=== PATIENT | female | born 2000 | race Caucasian/White ===

== ENCOUNTER → 2020-09-16 16:32 | Outpatient (BNVA) | payer OTHER, SELFPAY | PROVIDERS: Family Provider Nurse Practitioner Family; Visit Provider Emergency Medicine | DX: Z20.822 Contact with and (suspected) exposure to COVID-19 (principal) | CPT/HCPCS: 87635 ==

== ENCOUNTER → 2021-10-04 12:21 | Outpatient (BNVA) | payer MEDICAID, SELFPAY | PROVIDERS: Family Provider Nurse Practitioner Family; Visit Provider Registered Nurse Neonatal Intensive Care | DX: Z20.822 Contact with and (suspected) exposure to COVID-19 (principal); R09.81 Nasal congestion; R50.9 Fever, unspecified; R51.9 Headache, unspecified | CPT/HCPCS: 87635 ==

== ENCOUNTER 2021-10-05 18:02 | Emergency (ER) | payer MEDICAID, SELFPAY ==
[2021-10-05 18:09] VITALS: BP 111/70; PULSE 118; RESP 18; TEMP 37.3; O2SAT 95; BMI 21.4
[2021-10-05] MEDS: ibuprofen 800 mg tablet PO (18:37)
[2021-10-05 19:08] LABS: Influenza A by IFA Negative (Negative); Influenza B by IFA Negative (Negative)
--- NOTE | 2021-10-05 20:16 | ED_ITS ---
HPI - COVID General: Chief Complaint: COVID symptoms Stated Complaint: COVID symptoms Time Seen by Provider: 10/05/21 20:13 History of Present Illness: 21-year-old female comes in today with nausea vomiting diarrhea with fever and chills starting 2 days ago. Patient was evaluated 3 days ago when entering rehab and was negative for Covid. Patient was checked for the flu and Covid yesterday at the urgent care clinic and was reported to have a negative flu test and Covid test was sent out for further evaluation. Patient appears mildly unwell. Patient appears nontoxic. Patient appears in mild to no pain. COVID 19 common symptoms: positive fever(s), nausea, vomiting and diarrhea; negative dyspnea COVID 19 other sytmptoms: negative chest pain COVID Results: SARS-CoV-2 RNA (RT-PCR) Not detected (NOT DETECTED) 09/16/20 16:32 09/16/20 SARS-CoV-2 (PCR) Pending 10/04/21 12:21 10/04/21 Coronavirus Type 229E (PCR) Pending 10/04/21 12:21 10/04/21 Review of Systems Const: Reports: fever(s) Card: Denies: chest pain Resp: Denies: dyspnea GI: Reports: nausea, vomiting and diarrhea Physical Exam Const: COMMON NORMALS: alert HENMT: COMMON NORMALS: atraumatic HEAD & SCALP: atraumatic MOUTH: Normal oral and palatal mucosa present THROAT: posterior oropharynx normal Eye: COMMON NORMALS: Equal, round and reactive pupils present and EOMs intact bilaterally PUPIL: Yes Equal, round and reactive pupils present Neck/C-Spine: COMMON NORMALS: full ROM and no lymphadenopathy Resp: COMMON NORMALS: normal respiratory effort and clear to auscultation bilaterally AUSCULTATION: clear to auscultation bilaterally Cardio: COMMON NORMALS: regular rate and regular rhythm RATE: regular rate RHYTHM: regular rhythm GI: COMMON NORMALS: Soft to palpation and non-tender PALPATION: Yes Soft to palpation : BLADDER/KIDNEY EXAM: Yes CVA tenderness on the right Back/Pelvis: GENERAL BACK: Yes CVA tenderness Extremity: COMMON NORMALS: normal to inspection and no pedal edema Neuro: SENSORIUM/ORIENTATION: Yes alert Psych: COMMON NORMALS: cooperative Skin: COMMON NORMALS: turgor normal GENERAL SKIN EXAM: turgor normal Course Vital Signs: Vital signs: Vital Signs Temperature 99.2 F 10/05/21 18:09 Pulse Rate 87 10/05/21 20:34 Respiratory Rate 18 10/05/21 20:34 Blood Pressure 112/69 10/05/21 20:34 Pulse Oximetry 100 10/05/21 20:34 [facility] - COVID Medical Decision Making 21-year-old female comes in today with complaints of nausea vomiting, fever, body aches for last 2 days. Patient has been evaluated for the flu and for COVID-19 at the urgent care. On evaluation patient's posterior pharynx is clear. Bilateral TMs are clear. Ears are clear. Lungs are clear to auscultation. Abdomen soft with tenderness in suprapubic area. Patient does have some right CVA tenderness on the percussion. Differential diagnosis includes but not limited to urinary tract infection, viral syndrome, COVID-19. Influenza test was negative. Urinalysis showed a large amount of white blood cells but also some contamination. CBC showed a white count of 13.9. CMP was unremarkable. COVID-19 test remained outstanding. With clinical exam I believe the patient probably has a urinary tract infection possibly with some mild pyelonephritis. Patient was given 1 L of IV fluid with improvement in symptoms. We went ahead and gave 1 g of ceftriaxone for antibiotic. Patient will be continued on cephalexin 500 twice a day for the next 7 days. Patient was encouraged to drink plenty of fluids and follow-up with primary care for recheck. Patient reported understanding and agreed to plan. Lab Data : 10/05/21 20:37 10/05/21 20:37 Laboratory Results WBC 13.9 10^3/uL (4.0-10.0) H 10/05/21 20:37 RBC 4.33 10^6/uL (4.1-5.3) 10/05/21 20:37 Hgb 12.5 g/dL (11.5-15.3) 10/05/21 20:37 Hct 38.8 % (37.0-47.0) 10/05/21 20:37 MCV 89.6 fl (81-99) 10/05/21 20:37 MCH 28.9 pg (28.0-34.0) 10/05/21 20: MCHC 32.2 g/dL (30.0-36.0) 10/05/21 20:37 RDW 13.2 % (12.1-15.1) 10/05/21 20:37 Plt Count 187 10^3/cmm (130-400) 10/05/21 20: MPV 11.1 fL (7.4-10.4) H 10/05/21 20:37 Neut % (Auto) 84.2 % 10/05/21 20: Lymph % (Auto) 5.7 % 10/05/21 20: [place] % (Auto) 8.1 % 10/05/21 20:37 Eos % (Auto) 1.1 % 10/05/21 20: Baso % (Auto) 0.3 % 10/05/21 20: Neut # (Auto) 11.71 10^3/uL (1.8-7.7) H 10/05/21 20: Lymph # (Auto) 0.8 10^3/uL (0.8-4.8) 10/05/21 20: [place] # (Auto) 1.1 10^3/uL (0.2-0.9) H 10/05/21 20:37 Eos # (Auto) 0.2 10^3/uL (0.0-0.8) 10/05/21 20: Baso # (Auto) 0.0 10^3/uL (0.0-0.1) 10/05/21 20: Nucleated RBC % (auto) 0 % 10/05/21 20: Nucleated RBCs # 0.0 /100WBC 10/05/21 20: Sodium 135 mmol/L (136-145) L 10/05/21 20: Potassium 3.9 mmol/L (3.5-5.1) 10/05/21 20:37 Chloride 99 mmol/L (98-107) 10/05/21 20: Carbon Dioxide 21 mmol/L (22-29) L 10/05/21 20: Anion Gap 18.9 (5-19) 10/05/21 20:37 BUN 16 mg/dL (6-20) 10/05/21 20:37 Creatinine 0.8 mg/dL (0.5-0.9) 10/05/21 20: GFR Calculation 90.5 mL/min (90-130) 10/05/21 20:37 Glucose 115 mg/dL (65-115) 10/05/21 20:37 Calculated Osmolality 282 mOsm/kg (285-295) L 10/05/21 20:37 Calcium 9.4 mg/dL (8.5-10.5) 10/05/21 20:37 Total Bilirubin 0.5 mg/dL (0.15-1.2) 10/05/21 20:37 AST 16 U/L (0-32) 10/05/21 20:37 ALT 17 U/L (0-33) 10/05/21 20:37 Alkaline Phosphatase 92 IU/L (35-105) 10/05/21 20:37 Total Protein 8.0 g/dL (6.6-8.7) 10/05/21 20: Albumin 3.8 g/dL (3.5-5.2) 10/05/21 20: Globulin 4.2 g/dL (1.3-4.6) 10/05/21 20:37 Urine Color Yellow (Yellow) 10/05/21 21:20 Urine Appearance Clear (CLEAR) 10/05/21 21:20 Urine pH 5 (5-7) 10/05/21 21:20 Ur Specific [place] 1.010 (1.005-1.030) 10/05/21 21:20 Urine Protein Neg (Negative) 10/05/21 21:20 Urine Glucose (UA) Norm (Normal) 10/05/21 21:20 Urine Ketones Negative (Negative) 10/05/21 21:20 Urine Blood 2+ (Negative) H 10/05/21 21:20 Urine Nitrate Negative (Negative) 10/05/21 21:20 Urine Bilirubin Neg (Negative) 10/05/21 21:20 Urine Urobilinogen Norm mg/dL (Negative) 10/05/21 21:20 Ur Leukocyte Esterase 2+ (Negative) H 10/05/21 21:20 Urine RBC 0-4 /hpf (0-2) H 10/05/21 21:20 Urine WBC 25-40 /hpf (0-5) H 10/05/21 21:20 Ur Squamous Epith Cells 5-10 /hpf (0-5) H 10/05/21 21:20 Amorphous Sediment Not Reportable 10/05/21 21:20 Urine Bacteria 1+ /hpf (NONE) H 10/05/21 21:20 Influenza Type A Ag Negative (Negative) 10/05/21 18:38 Influenza Type B Ag Negative (Negative) 10/05/21 18:38 SARS-CoV-2 RNA (RT-PCR) Not detected (NOT DETECTED) 09/16/20 16:32 09/16/20 SARS-CoV-2 (PCR) Pending 10/04/21 12:21 10/04/21 Coronavirus Type 229E (PCR) Pending 10/04/21 12:21 10/04/21 Discharge Plan Discharge Patient Disposition: Home Clinical Impression: UTI (urinary tract infection) Qualifiers: Urinary tract infection type: acute cystitis Hematuria presence: without hematuria Qualified Code(s): N30.00 - Acute cystitis without hematuria Condition: Stable Prescriptions: New cephalexin 500 mg capsule 500 mg PO Q12H 7 Days Qty: 14 0RF Discharge Orders: Discharge ED (Routine); Ordered 10/05/21 Ordered By: Braulio Cole Discharge Diet: Usual diet Discharge Activity: Increase activity as tolerated Patient Instructions: Urinary Tract Infection in Women (ED) Activity Restrictions/Additional Instructions: Home and rest. Drink plenty of fluids. Take antibiotic 500 mg of cephalexin twice daily for the next 7 days. Follow-up with primary care in 1 week for re check. Return to ER for new concerns. Coding Level of Care Code ED Dump Grader for Molly Fwd Exam Comprehensive
[2021-10-05] MEDS: ondansetron 2 mg/ML SDV 2 mL 4 MG IVP (20:31)
[2021-10-05] MEDS: sodium chloride 0.9% 1,000 ML 999 ML IV (20:31)
[2021-10-05 20:33] VITALS: O2SAT 100
[2021-10-05 20:34] VITALS: BP 112/69; PULSE 87; RESP 18; O2SAT 100
[2021-10-05 20:48] LABS: Basophils % 0.3 %; Eosinophils # 0.2 10^3/uL (0.0-0.8); Eosinophils % 1.1 %; Hematocrit 38.8 % (37.0-47.0); Hemoglobin 12.5 g/dL (11.5-15.3); Lymphocytes # 0.8 10^3/uL (0.8-4.8); Lymphocytes % 5.7 %; Mean Corpuscular HGB Conc 32.2 g/dL (30.0-36.0); Mean Corpuscular Hemoglobin 28.9 pg (28.0-34.0); Mean Corpuscular Volume 89.6 fl (81-99); Mean Platelet Volume 11.1 fL (7.4-10.4); Monocytes # 1.1 10^3/uL (0.2-0.9); Monocytes % 8.1 %; Neutrophils # 11.71 10^3/uL (1.8-7.7); Neutrophils % 84.2 %; Nucleated Red Blood Cells % 0 %; Platelet Count 187 10^3/cmm (130-400); Red Blood Count 4.33 10^6/uL (4.1-5.3); Red Cell Distribution Width 13.2 % (12.1-15.1); White Blood Count 13.9 10^3/uL (4.0-10.0)
[2021-10-05 21:10] LABS: Alanine Aminotransferase 17 U/L (0-33); Albumin Level 3.8 g/dL (3.5-5.2); Alkaline Phosphatase 92 IU/L (35-105); Anion Gap 18.9 (5-19); Aspartate Amino Transferase 16 U/L (0-32); Blood Urea Nitrogen 16 mg/dL (6-20); Calcium 9.4 mg/dL (8.5-10.5); Carbon Dioxide 21 mmol/L (22-29); Chloride 99 mmol/L (98-107); Globulin 4.2 g/dL (1.3-4.6); Glomerular Filtration Rate 90.5 mL/min (90-130); Glucose 115 mg/dL (65-115); Osmolality Calculated 282 mOsm/kg (285-295); Potassium 3.9 mmol/L (3.5-5.1); Sodium 135 mmol/L (136-145); Total Bilirubin 0.5 mg/dL (0.15-1.2)
[2021-10-05 21:48] LABS: Add Urine Microscopic? YES; Bilirubin Urine Neg (Negative); Blood Urine 2+ (Negative); Glucose Urine UA Norm (Normal); Ketones Urine Negative (Negative); Leukocyte Esterase Urine 2+ (Negative); Nitrate Urine Negative (Negative); Protein Urine Neg (Negative); Urine Appearance Clear (CLEAR); Urine Color Yellow (Yellow); Urobilinogen Urine Norm (Negative); pH Urine 5 (5-7)
[2021-10-05 21:49] LABS: Add Urine Culture? Yes; Bacteria Urine 1+ /hpf; RBC Urine 0-4 /hpf (0-2); WBC Urine 25-40 /hpf (0-5)
[2021-10-05] MEDS: cefTRIAXone 1,000 MG in sodium chloride 0.9% (plus) 50 ML 100 MG IV (22:23)
[2021-10-05 22:45] VITALS: BP 122/73; PULSE 85; RESP 18; O2SAT 100
== END 2021-10-05 22:46 | disposition home or self-care (01) ==
PROVIDERS: Emergency Medicine; Emergency Provider Nurse Practitioner Family
DX: N30.00 Acute cystitis without hematuria (principal)
CPT/HCPCS: 80053; 81001; 85025; 87077; 87086; 87186; 87804; 96365; 96375; 99284; J0696; J2405; J7030

== ENCOUNTER → 2021-10-14 14:25 | Outpatient (BNVA) | payer MEDICAID, SELFPAY | PROVIDERS: Visit Provider Internal Medicine | DX: B19.20 Unspecified viral hepatitis C without hepatic coma (principal); R76.8 Other specified abnormal immunological findings in serum | CPT/HCPCS: 82105; 86705; 86706; 87340; 87522; 87902 ==

== ENCOUNTER → 2021-11-22 13:08 | Outpatient (BNVA) | payer MEDICAID, SELFPAY | PROVIDERS: PCP Family Medicine; Visit Provider Family Medicine | DX: Z01.419 Encounter for gynecological examination (general) (routine) without abnormal findings (principal) | CPT/HCPCS: 88175 ==

== ENCOUNTER → 2022-01-25 15:03 | Outpatient (BNVA) | payer MEDICAID, SELFPAY | PROVIDERS: PCP Family Medicine; Visit Provider Registered Nurse Neonatal Intensive Care | DX: R39.9 Unspecified symptoms and signs involving the genitourinary system (principal); Z20.2 Contact with and (suspected) exposure to infections with a predominantly sexual mode of transmission; N39.0 Urinary tract infection, site not specified | CPT/HCPCS: 81000; 87661 ==

== ENCOUNTER 2022-03-03 14:00 | Outpatient (CLI) | payer MEDICAID, SELFPAY ==
--- NOTE | 2022-03-03 14:15 | US_ITS ---
WS: [id number] Right upper quadrant ultrasound, 03/03/2022 Clinical Data: HEP C Comparison: None. Findings: The gallbladder shows no sludge or stone. The wall measures 0.3 cm with no pericholecystic fluid. The common bile duct is 0.4 cm and there are no intrahepatic ductal abnormalities. Liver shows no cysts, masses or dilated intrahepatic ducts. The portal vein shows normal flow. The pancreas is not obscured by overlying bowel gas and no cyst, pseudocyst, or evidence of pancreati tis is noted. Right kidney measures 9.3 cm and no cyst, masses or hydronephrosis can be seen. The aorta and inferior vena cava show no vascular abnormalities. US/US liver [id number] Impression: Negative right upper quadrant ultrasound and liver.
== END 2022-03-03 14:01 | disposition home or self-care (01) ==
LOC: RAD 14:03
PROVIDERS: PCP Family Medicine; Visit Provider Internal Medicine
DX: B19.20 Unspecified viral hepatitis C without hepatic coma (principal)
CPT/HCPCS: 76705

== ENCOUNTER 2023-09-06 15:06 | Outpatient (CLI) | payer MEDICAID, SELFPAY ==
[2023-09-06 15:06] VITALS: BMI 34.5
[2023-09-06 15:18] VITALS: BP 135/87; PULSE 114
[2023-09-06 15:39] VITALS: BP 113/72; PULSE 102
[2023-09-06 15:54] VITALS: BP 126/70; PULSE 103
[2023-09-06 16:04] LABS: Nitrazine Paper, PH Negative
[2023-09-06 16:07] VITALS: BP 126/70; PULSE 103
== END 2023-09-06 16:07 | disposition home or self-care (01) ==
LOC: OPOB 15:09 → OBGYN 15:09
PROVIDERS: PCP Family Medicine; Visit Provider Family Medicine
DX: O26.899 Other specified pregnancy related conditions, unspecified trimester (principal); Z3A.00 Weeks of gestation of pregnancy not specified; N89.8 Other specified noninflammatory disorders of vagina
CPT/HCPCS: 59025; 83986; 99211

== ENCOUNTER 2023-09-11 12:25 | Inpatient (IN) | payer MEDICAID, SELFPAY ==
[2023-09-11] VITALS (22 sets, daily range): BP systolic 108–142; BP diastolic 57–109; PULSE 85–110; RESP 16–18; BMI 34.5
[2023-09-11 13:13] LABS: Basophils % 0.4 %; Eosinophils # 0.1 10^3/uL (0.0-0.8); Eosinophils % 0.6 %; Hematocrit 33.9 % (36-47); Lymphocytes # 1.4 10^3/uL (0.8-4.8); Lymphocytes % 18.3 %; Mean Corpuscular HGB Conc 31.9 g/dL (30-55); Mean Corpuscular Hemoglobin 27.2 pg (27-33); Mean Corpuscular Volume 85.4 fl (85-98); Mean Platelet Volume 11.8 fL (7.4-10.4); Monocytes # 0.6 10^3/uL (0.2-0.9); Monocytes % 7.1 %; Neutrophils # 5.55 10^3/uL (1.8-7.7); Neutrophils % 71.9 %; Nucleated Red Blood Cells % 0 %; Platelet Count 182 10^3/cmm (157-399); Red Blood Count 3.97 10^6/uL (3.85-5.65); Red Cell Distribution Width 14.6 % (12.1-15.1); White Blood Count 7.72 10^3/uL (3.29-11.43)
[2023-09-11] MEDS: oxytocin 30 UNIT/500 ML BAG IV (13:15)
[2023-09-11] MEDS: dextrose 5%-lactated ringers 1,000 ML 125 ML IV ×2 (13:15→20:57)
[2023-09-11] MEDS: calcium carbonate 500 mg Chew Tablet 1000 MG PO (20:06)
[2023-09-11] MEDS: miSOPROStol 100 mcg tablet 25 MCG VAGINAL (23:10)
[2023-09-12] VITALS (84 sets, daily range): BP systolic 102–157; BP diastolic 53–93; PULSE 66–122; RESP 15–18; TEMP 35.7–36.3; O2SAT 74–100
[2023-09-12] MEDS: calcium carbonate 500 mg Chew Tablet 1000 MG PO ×2 (03:15→10:48)
[2023-09-12] MEDS: miSOPROStol 100 mcg tablet 25 MCG VAGINAL (04:01)
--- NOTE | 2023-09-12 12:15 | PM.OPHPUD ---
Labor & Delivery H&P Update Date of Procedure: September 11, 2023 Date H&P Performed: 09/07/23 Admission Diagnosis: IUP at 39 weeks 4d Primary indication for procedure: Elective induction Planned procedure: Induction of labor and delivery
--- NOTE | 2023-09-12 12:19 | PM.OBGYPN ---
COMPUTER SYSTEMS ADMINISTRATOR Subjective Subjective: Interval history: The patient is here for an elective induction. She is 39 weeks 5 days gestation today. Her induction process was started yesterday afternoon she was put on high-dose Pitocin by 9:00 that evening she had not had any cervical change so she was allowed to eat shower walk and was then started on Cytotec. She received 2 doses of Cytotec and this morning she was started again on Pitocin. Her cervical exam was 360 and -1 station with the head well applied so I went ahead and ruptured membranes. There was a moderate amount of clear fluid.. The patient has been samy irregularly every 1 to 5 minutes and heart tones have been reassuring running in the 140s with moderate variability. Labor: Station: -3 Amniotic Membrane Status: Ruptured Monitor Mode: Palpation Contraction Pattern: Irregular Status: Category I Vitals/I&O/Wt Last Vital Signs Temp 97.2 F L 09/12/23 08:41 Pulse 77 09/12/23 12:13 Resp 17 09/11/23 21:19 BP 130/77 09/12/23 12:13 O2 Del Method Room Air 09/11/23 21:19 09/11/23 09/12/23 09/12/23 22:59 06:59 14:59 Intake Total 1100.084 / 1109.084 34.0 / 34.0 Balance 1100.084 / 1109.084 34.0 / 34.0 Weight last 48 hrs Weight 106.141 kg Physical Exam Narrative: Resting in bed, alert and oriented, no abdominal tenderness, vaginal exam 3, 60, -2 station Data 09/11/23 12:35 Attestations Medical Necessity Statement*: Induction of labor and delivery Coding Level of Care Code Acute Code for Chg Fwd
[2023-09-12] MEDS: lactated ringers 1,000 ML 999 ML IV ×2 (12:39→13:49)
--- NOTE | 2023-09-12 14:01 | P.ANESASSM_ITS ---
Pre-Anesthetic Assessment Height/Weight: Height 1.75 m Weight 106.141 kg Temp Pulse Resp BP Pulse Ox O2 Del Method 97.3 F L 88 17 129/81 74 L Room Air 09/12/23 12:32 09/12/23 13:58 09/11/23 21:19 09/12/23 13:56 09/12/23 13:58 09/11/23 21:19 Preop Diagnosis: Labor pain CHOCO Was Beta Jose taken within 24 hours: N/A Was Clonidine taken within 24 hours: N/A Social No alcohol and No tobacco Vaps Exam alert, oriented x 3, clear to auscultation bilaterally and regular rate & rhythm Airway Submandibular: within normal limits Cervical ROM: within normal limits Mallampati: Class II Dentition: full History/ROS No significant history except as noted and No significant complaints Pulmonary None reported CV/HEM None reported None reported Hepatic None reported GI Gastroesophageal Reflux Disease Metabolic None reported Musc/skel None reported Neuropsych None reported Anesthetic Plan ASA status: 2 Anesthesia: Regional (specify below) Other: Epidural Risk of > 500 ml blood loss (7ml/kg in children): No Medications/Allergies Home Medications Medication Instructions Recorded Confirmed Last Taken Type No Known Home Medications 09/11/23 09/11/23 Unknown History Allergies Allergy/AdvReac Type Severity Reaction Status Date / Time aloe vera Allergy hives Verified 09/11/23 13:54 Current Medications Generic Name Dose Route Start Last Admin Trade Name Freq PRN Reason Stop Dose Admin Calcium Carbonate 1,000 mg 09/11/23 12:55 09/12/23 10:48 Calcium Carbonate 500 Mg Chew Tablet PO 1,000 mg Q4H PRN Administration Heartburn/Indigestion (Use 1st) Dextrose/Lactated Ringer's 1,000 mls @ 125 mls/hr 09/11/23 13:00 09/12/23 12:39 Dextrose 5%-Lactated Ringers IV Infused .Q8H KRISHAN Infusion Oxytocin 30 unit in 500 mls @ 1 mls/hr 09/11/23 13:15 09/12/23 12:00 Pitocin IV 20 milliunit/min .Q24H KRISHAN 20 mls/hr Titration Protocol 1 MILLIUNIT/MIN Lactated Ringer's 1,000 mls @ 999 mls/hr 09/12/23 12:33 09/12/23 13:49 Lactated Ringers IV 999 mls/hr .Q1H1M PRN Administration See label comments PFSH Anesthesia Medical History Anxiety Depression Trichomonal vaginitis Family History Family/Other Breast cancer paternal aunt, breast cancer Grandmother Breast cancer paternal grandmother, breast cancer Female Reproductive History : 1 Data Anesthesia 09/11/23 12:35 Short CBC 09/11/23 Range/Units 12:35 WBC 7.72 (3.29-11.43) 10^3/uL Hgb 10.80 L (11.27-16.99) g/dL Hct 33.9 L (36-47) % MCV 85.4 (85-98) fl Plt Count 182 (157-399) 10^3/cmm Neut % (Auto) 71.9 % Neut # (Auto) 5.55 (1.8-7.7) 10^3/uL Blood Bank 09/11/23 12:35 Blood Type O Positive Rho(D) Type Rh positive Antibody Screen Negative Cardiac Studies: 2 No Data to Display
--- NOTE | 2023-09-12 14:04 | ANES.PROC ---
Anesthesia Procedures Procedure/Date: 09/12/23 Epidural: Time Out Performed: Yes Consents Signed: Procedure Consent Consent: requested by attending/covering physician, from patient, risks and benefits reviewed and patient agrees to proceed Lumbar Level: L3-L4 Epidural position: sitting Epidural procedure: sterile prep of area, 1% lidocaine to numb the area, 18 g needle, negative for paresthesia passed, neg for paresthesia, test dose given, 1.5% xylocaine 1:200k epi, 0.2% Ropivacaine bolus ml (5cc and Fentanyl 100 mcg), placed PCEA, no systemic response, sterile dressing applied and 0.2% Ropiavacaine @ mls/hr (12cc/hour) Additional Comments: Pt tolerated well
[2023-09-12] MEDS: ROPivacaine syringe 100 MG/50 ML SYRINGE 13 MG EPIDURAL ×3 (14:09→20:45)
[2023-09-12] MEDS: dextrose 5%-lactated ringers 1,000 ML 125 ML IV (14:47)
[2023-09-12] MEDS: alum-mag-hydroxide-sime 30 mL UDC PO (18:48)
[2023-09-12] MEDS: oxytocin 30 UNIT/500 ML BAG 10 UNIT IV (22:03)
[2023-09-12] MEDS: lidocaine 2% INJ 20 mL INJECTION (23:42)
[2023-09-13] VITALS (13 sets, daily range): BP systolic 109–141; BP diastolic 60–89; PULSE 90–106; RESP 16–17; TEMP 36.8; O2SAT 97
--- NOTE | 2023-09-13 00:30 | PM.DELIVERY ---
Delivery Note: Date of delivery: September 13, 2023 Estimated blood loss (mL): 250 Pre-Delivery Course: The patient had routine care at [facility]. She was blood type O+, antibody negative, hepatitis B nonreactive, hepatitis C nonreactive, HIV nonreactive, rubella nonimmune, GC chlamydia negative, positive for trichomonas treated with test of cure negative, Q low risk, she passed her glucose tolerance test, she was GBS negative. There were no complications during the . Delivery: This is a 23-year-old G1, P0 at 39 weeks 5 days gestation who requested an elective induction. She was first started on Pitocin but after 9 hours had not made any cervical change so she was allowed to eat walk and shower. She was then given 2 doses of Cytotec. Afterwards she had still not made much cervical change but she was restarted on Pitocin. She underwent artificial rupture of membranes. She received an epidural for pain management. She had a normal spontaneous vaginal delivery of a viable male weight 9 pounds 0 ounces, 4090 gm over an intact perineum. The was suctioned at delivery but was born stunned so he was taken directly to the warmer for stimulation. The placenta was delivered grossly intact and normal to inspection. There was a second-degree perineal laceration that was sutured using 3-0 chromic. Mother was doing well after delivery. The was taken to the nursery for CPAP due to respiratory distress, likely TTN. History History History 1 Term 0 0 Miscarriages/Ectopic 0 Living Children 0 Coding Level of Care Code Acute Code for Chg Fwd
--- NOTE | 2023-09-13 06:59 | ANE.PACU2 ---
Inpatient post-anesthesia follow up: Airway intact: Yes Vital signs: Temperature 97.0 F Pulse Rate 100 Respiratory Rate 17 Blood Pressure 126/68 Pulse Oximetry 98 Oxygen Delivery Me thod Room Air Oxygen Flow Rate Fraction of Inspir ed Oxygen Hydration adequate: Yes Nausea and vomiting: No Pain level: 2 Mental status: Baseline Epidural Start/End: Epidural Start Date: 09/12/23 Epidural Start Time: 13:43 Epidural End Date: 09/13/23 Epidural End Time: 00:50
[2023-09-13] MEDS: docusate sodium 100 mg Capsule PO (08:55)
[2023-09-13] MEDS: prenatal vitamin Capsule 1 CAP PO (08:55)
[2023-09-13] MEDS: ibuprofen 800 mg tablet PO ×3 (08:55→21:37)
[2023-09-13 12:45] LABS: Hematocrit 30.5 % (36-47); Mean Corpuscular HGB Conc 31.8 g/dL (30-55); Mean Corpuscular Hemoglobin 27.7 pg (27-33); Mean Corpuscular Volume 87.1 fl (85-98); Mean Platelet Volume 11.9 fL (7.4-10.4); Platelet Count 146 10^3/cmm (157-399); White Blood Count 10.54 10^3/uL (3.29-11.43)
--- NOTE | 2023-09-13 16:43 | P.PN_ITS ---
Subjective 2 Subjective: She was too exhausted to breast-feed this morning so she offered him formula. Her bleeding is likely heavy. With gushes at times. Vitals/I&O/Wt Last Vital Signs Temp 97.0 F L 09/12/23 18:49 Pulse 106 H 09/13/23 16:23 Resp 17 09/13/23 02:09 BP 138/83 09/13/23 16:23 Pulse Ox 98 09/12/23 21:58 O2 Del Method Room Air 09/13/23 02:09 09/13/23 09/13/23 09/13/23 06:59 14:59 22:59 Intake Total 500 / 2230.75 Output Total 700 / 1350 Balance -200 / 880.75 Physical Exam 2 Narrative: Alert and oriented, sitting up in bed changing the infant, heart regular rate and rhythm, lungs clear to auscultation bilaterally, abdomen is soft and nontender, fundus is firm, extremities have edema but no calf tenderness Urinary Catheter Management: Velasco Latex: Cath Placed During This Visit: yes, but has since been removed by the nurse Reason for Continuing Indwelling Catheter: Decision to DC Catheter Urinary Catheter Date of Insertion: 09/12/23 Urinary Catheter Time of Insertion: 14:35 Date Urinary Catheter Removed: 09/12/23 Time Urinary Catheter Discontinued: 22:45 Data 09/13/23 12:34 A&P Assessment and plan (1) Normal spontaneous vaginal delivery: Routine care Attestations 2 Medical Necessity Statement*: Routine care Coding Level of Care Code Acute Code for Chg Fwd Diagnoses Normal spontaneous vaginal delivery O80
[2023-09-14 03:37] VITALS: BP 109/68; PULSE 83; RESP 16; TEMP 36.6; TEMP 36.7; O2SAT 98
[2023-09-14] MEDS: prenatal vitamin Capsule 1 CAP PO (11:07)
[2023-09-14] MEDS: ibuprofen 800 mg tablet PO ×2 (11:07→16:09)
[2023-09-14] MEDS: docusate sodium 100 mg Capsule PO (11:07)
[2023-09-14 11:14] VITALS: BP 109/69; PULSE 94; RESP 16; TEMP 36.6; O2SAT 99
--- NOTE | 2023-09-14 17:07 | P.DS_ITS ---
Discharge Providers Date of Admission: 09/11/23 12:25 Date of Discharge: September 14, 2023 Attending Provider at Admission: Maura Wayne MD Attending Provider at Discharge: Maura Wayne MD Primary Care Provider: Gabriel Cross DO Diagnoses at Discharge Discharge Diagnosis (1) Normal spontaneous vaginal delivery: Status: Acute Reason for Visit Reason for Visit: induction Hospital Course Hospital Course This is a 23-year-old G1 now P1 who was admitted for elective induction at 39 weeks 4 days gestation. She had a normal spontaneous vaginal delivery of a viable male . The initially had respiratory distress with transient tachypnea of the . He required CPAP for the first 3 hours of life. mother did well. She was ambulating, tolerating a regular diet, had decreased vaginal bleeding and was comfortable with discharge home. Physical Exam Narrative: Laying in bed with infant, heart regular rate and rhythm, lungs clear to auscultation bilaterally, abdomen soft and nontender, fundus firm, extremities have no calf tenderness. Urinary Catheter Management: Velasco Latex: Cath Placed During This Visit: yes, but has since been removed by the nurse Reason for Continuing Indwelling Catheter: Decision to DC Catheter Urinary Catheter Date of Insertion: 09/12/23 Urinary Catheter Time of Insertion: 14:35 Date Urinary Catheter Removed: 09/12/23 Time Urinary Catheter Discontinued: 22:45 Discharge Data Studies Completed and Pending Laboratory Results WBC 10.54 10^3/uL (3.29-11.43) 09/13/23 12:34 RBC 3.50 10^6/uL (3.85-5.65) L 09/13/23 12:34 Hgb 9.70 g/dL (11.27-16.99) L 09/13/23 12:34 Hct 30.5 % (36-47) L 09/13/23 12:34 MCV 87.1 fl (85-98) 09/13/23 12:34 MCH 27.7 pg (27-33) 09/13/23 12:34 MCHC 31.8 g/dL (30-55) 09/13/23 12:34 RDW 15.0 % (12.1-15.1) 09/13/23 12:34 Plt Count 146 10^3/cmm (157-399) L 09/13/23 12:34 MPV 11.9 fL (7.4-10.4) H 09/13/23 12:34 Neut % (Auto) 71.9 % 09/11/23 12:35 Lymph % (Auto) 18.3 % 09/11/23 12:35 [place] % (Auto) 7.1 % 09/11/23 12:35 Eos % (Auto) 0.6 % 09/11/23 12:35 Baso % (Auto) 0.4 % 09/11/23 12:35 Neut # (Auto) 5.55 10^3/uL (1.8-7.7) 09/11/23 12:35 Lymph # (Auto) 1.4 10^3/uL (0.8-4.8) 09/11/23 12:35 [place] # (Auto) 0.6 10^3/uL (0.2-0.9) 09/11/23 12:35 Eos # (Auto) 0.1 10^3/uL (0.0-0.8) 09/11/23 12:35 Baso # (Auto) 0.0 10^3/uL (0.0-0.1) 09/11/23 12:35 Nucleated RBC % (auto) 0 % 09/11/23 12:35 Nucleated RBCs # 0.0 /100WBC 09/11/23 12:35 Blood Type O Positive 09/11/23 12:35 Rho(D) Type Rh positive 09/11/23 12:35 Antibody Screen Negative 09/11/23 12:35 Vitals Last Vital Signs Temp 97.9 F 09/14/23 11:14 Pulse 94 09/14/23 11:14 Resp 16 09/14/23 11:14 BP 109/69 09/14/23 11:14 Pulse Ox 99 09/14/23 11:14 O2 Del Method Room Air 09/14/23 11:14 Discharge Plan Discharge Patient Disposition: Home Condition: Stable Prescriptions: No Action No Known Home Medications Discharge Orders: Discharge Order (Routine); Ordered 09/14/23 Ordered By: Maura Wayne Referrals: Maura Wayne MD [Physician] - 10/12/23 10:30 am Discharge Diet: Usual diet Discharge Activity: Limit activity as instructed Patient Instructions: Opioid Safety Activity Restrictions/Additional Instructions: Nothing per vagina for 6 weeks Discharge Attestations Time Spent in Discharge Care*: less than 30 min Quality Metrics Clinical Quality Measures [ No reported AMI, CVA or VTE this stay] Coding Level of Care Code Acute Code for Chg Fwd Diagnoses Normal spontaneous vaginal delivery O80
[2023-09-14 19:23] VITALS: BP 127/82; PULSE 90; RESP 16; TEMP 36.6
[2023-09-14] MEDS: measles,mumps,rubella pf Vial (w/diluent) 0.5 ML SUBCUT (19:28)
== END 2023-09-14 19:40 | disposition home or self-care (01) | DRG 807 ==
LOC: OPOB 12:27 → OBGYN 12:27
PROVIDERS: Admitting Provider Family Medicine; PCP Family Medicine; Visit Provider Family Medicine
DX: O80 Encounter for full-term uncomplicated delivery (principal); Z37.0 Single live birth; Z3A.39 39 weeks gestation of pregnancy
CPT/HCPCS: 36415; 51702; 59025; 59409; 85025; 85027; 86850; 86900; 90707; 96372; 96374; 99211; J2590; J2795; J3010; J7120; J7121

== ENCOUNTER 2024-12-13 21:11 | Outpatient (CLI) | payer MEDICAID, SELFPAY ==
[2024-12-13 21:24] VITALS: BP 155/84; PULSE 116
[2024-12-13 21:28] VITALS: BMI 32.8
--- NOTE | 2024-12-13 21:56 | PC.NURSE ---
Addendum entered by Vijaya Morrison RICHARD 12/13/24 22:15: 12/13/240: Patient and heard yelling in patient room at each other by Maisha Gutierrez RN. Patient heard stating, Just leave and then I will kill myself. Patient asked to step out to waiting room at this time by Maisha Gutierrez RN so that patient could be calmed down without in the room. Patient then began to scream as left room and unit. A senior application security consultant in [place] in front of traige room speaking with patient in effort to calm patient down as well at Maisha Gutierrez RN. A second senior application security consultant walked patient out at this time and of patient walked out of hospital into parking lot. Patient then stated, If he is going to leave I am going to kill myself. I am going to go home and kill myself if he leaves me. Patient then walked into villa and demanded that she be let out of doors so she could leave to find her . This RN, two security guards, Rosie PETERSONcemetery workers supervisor, Jozef Vargas RN, and Maisha Gutierrez RN standing in hallway making effort to calm patient down and explaining that patient cannot leave if she is having active suicidal ideation/thoughts. Patient states, I know that if I stay you will 96 hour hold me. I need to leave, this is against the law. Jozef Higgins RN and Rosie RN speaking with patient to explain that Dr. Medina is being called by this RN to let him know what is happening. This RN informed Jozef Vargas RN adn Rosie PETERSON that Dr. Medina would like patient to be seen in Emergency Room for further care for mental health evaluations. Information relayed to patient adn patient refused to go to ER. This RN then called Dr. Medina again to inform him that patient refusing to go to ER. Dr. Medina informed this RN that patient not cleared to leave AMA at this time and he would come in to evaluate patient. Dr. Medina on his way at this time. Jozef Higgins RN, Rosie RN, and this RN asked patient to come into patient room and explained that Dr. Medina would be in to see patient and evaluate her. Patient upset and crying but understanding of parameters set. Original Note: 12/13/242129: Patient asked to step out to waiting room at this time by Maisha Gutierrez RN so that patient could be calmed down without in the room. Patient then began to scream as left room and unit. A senior application security consultant in [place] in front of traige room speaking with patient in effort to callm patient down as well at Maisha Gutierrez RN. A second senior application security consultant walked patient out at this time and of patient walked out of hospital into parking lot. Patient then stated, If he is going to leave I am going to kill myself. I am going to go home and kill myself if he leaves me. Patient then walked into villa and demanded that she be let out of doors so she could leave to find her . This RN, two security guards, Rosie PETERSONcemetery workers supervisor, Jozef Vargas RN, and Maisha Gutierrez RN standing in hallway making effort to calm patient down and explaining that patient cannot leave if she is having active sucidal ideation/thoughts. Patient states, I know that if I stay you will 96 hour hold me. I need to leave, this is against the law. Jozef Higgins RN and Rosie RN speaking with patient to explain that Dr. Medina is being called by this RN to let him know what is happening. This RN informed Jozef Vargas RN adn Rosie RN that Dr. Medina would like patient to be seen in Emergency Room for further care for mental helath evaluations. Information relayed to patient adn patient refused to go to ER. This RN then called Dr. Medina again to inform him that patient refusing to go to ER. Dr. Medina informed this RN that patient not cleared to leave AMA at this time and he would come in to evaluate patient. Dr. Medina on his way at this time. Jozef Higgins RN, Rosie RN, and this RN asked patient to come into patient room and explained that Dr. Medina would be in to see patient and evaluate her. Patient upset and crying but understanding of parameters set.
--- NOTE | 2024-12-13 22:32 | PM.OBTRLD ---
OB L&D Triage Visit Information: Date of evaluation: 12/13/24 Comments/Additional reason(s) for visit: The patient arrived to the hospital because she had some spotting and some cramping earlier in the day. She noted some pink discharge on her tissue paper. Since has been has it been no spotting. There is been no contractions. She has felt fine in that regard. She has been fighting with her for the last couple of days. Apparently he cheated on her last night and she was wanting to make him more interested in her. As result, weather fighting, she said she would go home and kill herself. After she said that, the nurses contacted me to make me aware of the situation. She also to the nurses that she did not really mean that and that she would just try to get her 's attention. I came and spoke with her in depth about what was going on. She told me her full story. She said she does not have any plan to kill herself. She stated that she never really was interested in hurting herself, but just wanted a reaction from her . She states that sometimes she hates her life, but that she would never hurt herself. Her responses appeared to be authentic and genuine. At no point did she feel like she was trying to tell me what I wanted to hear so she could leave. She contracted with me that she would not hurt herself. She has her grandmother as well as a good friend that she can talk to if she starts feeling bad. She also acknowledges that she can come to the OB department, to the ER, or contact bonding equipment operator to talk to me if she starts feeling like she wants herself. Fortunately, it appears that that was not an issue in the first place. Evaluation: Vital signs: Vital Signs - 24 hr 12/13/24 21:24 Pulse Rate 116 H Blood Pressure 155/84 Coding Level of Care Code Acute Code for Chg Fwd
[2024-12-13 22:36] VITALS: BP 135/80; PULSE 98; RESP 17; TEMP 35.5; O2SAT 100
[2024-12-13 22:38] VITALS: BP 144/91; PULSE 99
[2024-12-13 22:39] VITALS: BP 135/80; PULSE 97; O2SAT 100
[2024-12-13 22:40] VITALS: TEMP 35.5
--- NOTE | 2024-12-14 04:23 | PC.NURSE ---
12/13/246: This RN and Dr. Medina at bedside at this time. Dr. Medina talking to patient about previous statement that she wished to end her life. Patient informed Dr. Medina that she does not have a desire to kill herself or any suicidal thoughts and stated those things earlier to get a reaction/attention from her . Patient sincere in this statement and did not show signs of saying she was fine just to be able to leave hospital. Orders received after Dr. Medina finished conversation with patient to discharge patient home. Patient informed this RN and Dr. Medina that she has a close friend and her gradmother to go to in the case that she did have suicidal feelings or thoughts.
--- NOTE | 2024-12-14 04:36 | PC.NURSE ---
This RN at bedside explaining to patient at this time reason for suicide risk questioning and asking questions of patient. Questions asked after patient deescalated and calm in triage bay.
--- NOTE | 2024-12-14 07:03 | PC.NURSE ---
12/13/242129: Patient and heard yelling in patient room at each other by Maisha Gutierrez RN. Security already on OB unit at this time. Patient heard stating, Just leave and then I will kill myself when i get home. Patient asked to step out to waiting room at this time by Maisha Gutierrez RN so that patient could be calmed down and situation deescalated after yelling at patient. Patient then began to scream as left room and unit. A customer security clerk in [place] in front of triage room speaking with patient in effort to calm patient down as well at Maisha Gutierrez RN. sales broker called Rosie PETERSONoptical assistant once Maisha Gutierrez in patient room. A second customer security clerk walked patient out at this time and of patient walked out of hospital into parking lot. Patient then stated, If he is going to leave I am going to kill myself. I am going to kill myself if he leaves me. Patient then walked into villa and demanded that she be let out of doors so she could leave to find her . Maisha Gutierrez RN notified Jozef Vargas RN at this time that she was needed for situation. This RN, two security guards, Jozef Vargas RN, and Maisha Gutierrez RN standing in hallway making effort to calm patient down and explaining that patient cannot leave if she is having active suicidal ideation/thoughts. Patient actively pushing on locked door attempting to elope. Rosie PETERSONoptical assistant arrival to unit at this time. Patient states, I know that if I stay you will 96 hour hold me. I need to leave, this is against the law. Jozef Higgins RN and Rosie PETERSON speaking with patient to explain that Dr. Medina is being called by this RN to let him know what is happening. This RN informed Jozef Vargas RN and Rosie RN that Dr. Medina would like patient to be seen in Emergency Room for further care for mental health evaluations. Information relayed to patient and patient refused to go to ER. This RN then called Dr. Medina again to inform him that patient refusing to go to ER. Dr. Medina informed this RN that patient was not cleared to leave AMA at this time and he would come in to evaluate patient. Dr. Medina on his way at this time. Jozef Higgins RN, Rosie RN, and this RN asked patient to come into patient room and explained that Dr. Medina would be in to see patient and evaluate her. Patient upset and crying but understanding of parameters set. Patient then calmed down significantly and rested in bed until Dr. Medina arrived. 12/13/24 2216: This RN and Dr. Medina at bedside at this time. Dr. Medina listening to patient's explanation and reasoning of stating she had suicidal ideation/thoughts. Patient explained she was wanting to get a reaction out of her and did not actually desire to . Patient told Dr. Medina that her grandmother was at her house and had a close friend available as well to notify if she did have thoughts or feelings of suicide. Patient discharge order received by this RN from Dr. Medina. Patient discharged at 2236 and patient left unit at 2243.
== END 2024-12-13 22:43 | disposition home or self-care (01) ==
LOC: OPOB 21:12 → OBGYN 21:13
PROVIDERS: PCP Family Medicine; Visit Provider Family Medicine
DX: O26.859 Spotting complicating pregnancy, unspecified trimester (principal); Z3A.00 Weeks of gestation of pregnancy not specified; R25.2 Cramp and spasm
CPT/HCPCS: 99211